=== PATIENT | female | born 1990 | race Caucasian/White ===

== ENCOUNTER 2018-01-16 12:30 | Emergency (ER) | payer BC ==
[2018-01-16] MEDS ORDERED: [UNRECOGNIZED DRUG - OTHER] (12:46)
--- NOTE | 2018-01-16 12:52 | ER Report ---
History and Physical Time Seen By MD: 12:50 Hx. of Stated Complaint: NUMBNESS DOWN BOTH ARM, CHEST PAIN/BACK PAIN SINCE WED. CRYING, STATES NOT GETTING BETTER. [facility] [place] HPI/ROS CHIEF COMPLAINT: Chest pain HISTORY OF PRESENT ILLNESS: This is a 27-year-old female who presents to the emergency department for chest pain, bilateral arm pain. Patient states that since Wednesday she's had an increase in chest pain, no shortness of breath along with bilateral arm pain, both arms hurt, states difficult to lift arms off the gurney. Patient is tearful. Anxious. Patient also states she was evaluated at a [place] urgent care today, where they did a strep test which was negative and an EKG. Patient then decided to come to [place] for further evaluation. Patient also states she had one fever last night. Patient also states that she has numbness and tingling to both upper extremities intermittent. No nausea vomiting no shortness of breath. No headaches. REVIEW OF SYSTEMS: Constitutional: As above. Eyes: No discharge. ENT: No sore throat. Cardiovascular: As above. Respiratory: No cough, no shortness of breath. Gastrointestinal: No abdominal pain, no vomiting. Genitourinary: No hematuria. Musculoskeletal: As above. Skin: No rashes. Neurological: No headache. Allergies: Coded Allergies: acetaminophen (Verified Allergy, Unknown, 01/16/18) hydrocodone (Verified Allergy, Unknown, 01/16/18) Home Meds Reported Medications [Bentromine] No Conflict Check 01/16/18 Past Medical/Surgical History Patient has no significant past medical or surgical history. Reviewed Nurses Notes: Yes Constitutional Vital Sign - Last 24 Hours 01/16/18 12:39 Temp 99.5 B/P (MAP) 133/78 Intake and Output 01/16/18 01/16/18 01/17/18 15:00 23:00 07:00 Intake Total 500 ml Balance 500 ml Physical Exam General Appearance: The patient is alert, has no immediate need for airway protection and no signs of toxicity, very anxious and tearful. Eyes: Pupils equal and round no pallor or injection. ENT, Mouth: Mucous membranes are moist. Respiratory: There are no retractions, lungs are clear to auscultation. Cardiovascular: Regular rate and rhythm, no murmurs, clicks or rubs. Gastrointestinal: Abdomen is soft and non tender, no masses, bowel sounds normal. Neurological: Alert and oriented 4. Moving all extremities. Following all commands. No focal neuro deficits. Painful to lift arms off the gurney. Skin: Warm and dry, no rashes. Musculoskeletal: Neck is supple non tender. Extremities are nontender, nonswollen and have full range of motion. CMS intact bilateral upper extremities. Bilateral upper extremity pulses palpable and equal. DIFFERENTIAL DIAGNOSIS: After history and physical exam differential diagnosis was considered for chest pain including but not limited to myocardial ischemia, pericarditis pulmonary embolus, anxiety, chest wall pain, pleural inflammation and pulmonary infectious causes. Medical Decision Making Data Points Result Diagram: 01/16/18 1312 01/16/18 1312 Laboratory Hematology Test 01/16/18 13:12 Red Blood Count 5.02 M/uL (4.17-5.56) Mean Corpuscular Volume 90.8 fL (80.0-96.0) Mean Corpuscular Hemoglobin 32.5 pg (26.0-33.0) Mean Corpuscular Hemoglobin Concent 35.8 g/dL (32.0-36.0) Red Cell Distribution Width 13.1 % (11.5-14.5) Mean Platelet Volume 6.8 fL (7.2-11.1) Neutrophils (%) (Auto) 81.9 % (39.4-72.5) Lymphocytes (%) (Auto) 9.2 % (17.6-49.6) Monocytes (%) (Auto) 7.0 % (4.1-12.4) Eosinophils (%) (Auto) 1.1 % (0.4-6.7) Basophils (%) (Auto) 0.8 % (0.3-1.4) Nucleated RBC Relative Count (auto) 0.0 /100WBC Neutrophils # (Auto) 7.2 K/uL (2.0-7.4) Lymphocytes # (Auto) 0.8 K/uL (1.3-3.6) Monocytes # (Auto) 0.6 K/uL (0.3-1.0) Eosinophils # (Auto) 0.1 K/uL (0.0-0.5) Basophils # (Auto) 0.1 K/uL (0.0-0.1) Nucleated RBC Absolute Count (auto) 0.00 K/uL D-Dimer Quantitative (PE/DVT) 0.40 ug/ml (0-0.50) Sodium Level 137 mmol/L (137-145) Potassium Level 4.0 mmol/L (3.5-5.0) Chloride Level 104 mmol/L (98-107) Carbon Dioxide Level 22 mmol/L (22-31) Blood Urea Nitrogen 9 mg/dl (7-18) Creatinine 0.80 mg/dl (0.52-1.04) Glomerular Filtration Rate Calc > 60.0 Random Glucose 97 mg/dl (75-110) Calcium Level 8.8 mg/dl (8.4-10.2) Total Bilirubin 0.4 mg/dl (0.2-1.3) Aspartate Amino Transf (AST/SGOT) 29 U/L (0-35) Alanine Aminotransferase (ALT/SGPT) 59 U/L (0-56) Alkaline Phosphatase 99 U/L (0-126) Troponin I < 0.012 ng/ml Total Protein 7.3 g/dl (6.3-8.2) Albumin 4.2 g/dl (3.5-5.0) Chemistry Test 01/16/18 13:12 White Blood Count 8.8 k/uL (4.5-11.0) Red Blood Count 5.02 M/uL (4.17-5.56) Hemoglobin 16.3 g/dL (12.0-16.0) Hematocrit 45.6 % (34.0-47.0) Mean Corpuscular Volume 90.8 fL (80.0-96.0) Mean Corpuscular Hemoglobin 32.5 pg (26.0-33.0) Mean Corpuscular Hemoglobin Concent 35.8 g/dL (32.0-36.0) Red Cell Distribution Width 13.1 % (11.5-14.5) Platelet Count 321 K/uL (150-450) Mean Platelet Volume 6.8 fL (7.2-11.1) Neutrophils (%) (Auto) 81.9 % (39.4-72.5) Lymphocytes (%) (Auto) 9.2 % (17.6-49.6) Monocytes (%) (Auto) 7.0 % (4.1-12.4) Eosinophils (%) (Auto) 1.1 % (0.4-6.7) Basophils (%) (Auto) 0.8 % (0.3-1.4) Nucleated RBC Relative Count (auto) 0.0 /100WBC Neutrophils # (Auto) 7.2 K/uL (2.0-7.4) Lymphocytes # (Auto) 0.8 K/uL (1.3-3.6) Monocytes # (Auto) 0.6 K/uL (0.3-1.0) Eosinophils # (Auto) 0.1 K/uL (0.0-0.5) Basophils # (Auto) 0.1 K/uL (0.0-0.1) Nucleated RBC Absolute Count (auto) 0.00 K/uL D-Dimer Quantitative (PE/DVT) 0.40 ug/ml (0-0.50) Glomerular Filtration Rate Calc > 60.0 Calcium Level 8.8 mg/dl (8.4-10.2) Total Bilirubin 0.4 mg/dl (0.2-1.3) Aspartate Amino Transf (AST/SGOT) 29 U/L (0-35) Alanine Aminotransferase (ALT/SGPT) 59 U/L (0-56) Alkaline Phosphatase 99 U/L (0-126) Troponin I < 0.012 ng/ml Total Protein 7.3 g/dl (6.3-8.2) Albumin 4.2 g/dl (3.5-5.0) Coagulation Test 01/16/18 13:12 D-Dimer Quantitative (PE/DVT) 0.40 ug/ml EKG/Imaging EKG Interpretation 12 lead EKG: Time of EKG 1311. Rhythm: Normal sinus rhythm, ventricular rate 100 bpm. [place]: normal QRS: normal ST segments: No ST depression or elevation identified. [place] [facility] [place] Patient: Isha Montenegro : 1990 Visit/Account:[id number] Date of Sevice: 01/16/2018 CHEST PA AND LAT INDICATION: Bilateral arm and leg pain COMPARISON: None available FINDINGS: Heart size within normal limits. There is no focal infiltrate or lobar consolidation. There is no pneumothorax or pleural effusion. IMPRESSION: 1. No acute cardiopulmonary process. Report Dictated By: Rajiv Smith at 01/16/2018 1:57 PM Report E-Signed By: Rajiv Smith at 01/16/2018 1:58 PM WSN:[facility] Location: [facility] [place] Patient: Isha Montenegro : 1990 Visit/Account:[id number] Date of Sevice: 01/16/2018 CERVICAL SPINE 2 OR 3 VIEW Indication: Pain., Comparison: None available. Findings: The prevertebral soft tissues are within normal limits. The vertebral body heights are well maintained. There is straightening of the normal cervical lordosis. No spondylosis or spondylolisthesis is identified. IMPRESSION: 1. No acute osseous or acute alignment abnormality of the cervical spine on this examination. Report Dictated By: Rajiv Smith at 01/16/2018 1:58 PM Report E-Signed By: Rajiv Smith at 01/16/2018 1:58 PM WSN:[facility] ED Course/Re-evaluation Clinical Indication for ER IV: Hydration, IV Access ED Course The patient was admitted to room. A history of physical were obtained. Differential diagnoses were considered. IV was started. A CBC, CMP, troponin and d-dimer were obtained. Lab studies unremarkable. Negative troponin negative d-dimer. Two-view chest x-ray was negative. Cervical spine negative. Patient was given a 1 L normal saline bolus. I reviewed the lab studies and the imaging studies with the patient. I did tell her that with the negative d-dimer there is no indication for pursuing her concerns of a clot. I did tell the patient I don't have a clear explanation is why she is having the pain in the upper extremities. However when I walked in the room the patient was moving her arms freely without any concerns of pain, she was tech stating, not crying or anxious appearing. After I reviewed the lab studies and the imaging studies with patient as I was exiting the room she began to cry. The patient's had no other questions at this time, no other concerns. I did tell her that she should follow-up with her primary care provider within the next 7 days for reevaluation and any other concerns. Patient had no questions or concerns at this time and discharged home. Decision to Disposition Date: Jan 16, 2018 Decision to Disposition Time: 14:18 Depart Departure Latest Vital Signs Vital Signs Date Time Temp Pulse Resp B/P (MAP) Pulse Ox O2 Delivery O2 Flow Rate FiO2 01/16/18 12:39 99.5 133/78 Impression: Primary Impression: Arm pain Additional Impression: Chest pain Condition: Improved Disposition: HOME OR SELF-CARE Patient Instructions: Arm Pain (ED), Chest Pain (ED) Additional Instructions: I do not have a clear cut reason for your chest pain and arm pains, however, nothing cardiac or any other concerning findings today. Drink plenty of fluids. Get plenty of rest. Take Ibuprofen or Tylenol as needed for pain. If the arm pain returns or if you have any other concerns follow up with your primary care provider in one week. For worsening symptoms return to the ED. Problem Qualifiers Primary Impression: Arm pain Laterality: bilateral Qualified Codes: M79.601 - Pain in right arm; M79.602 - Pain in left arm Additional Impression: Chest pain Chest pain type: unspecified Qualified Codes: R07.9 - Chest pain, unspecified WENDI LYN- Jan 16, 2018 12:52
[2018-01-16] MEDS ORDERED: NS(*) 0.9% 1000 ML BAG 1,000 ML IV ONE (12:58)
[2018-01-16] MEDS ORDERED: ASPIRIN 81 MG CHEW PO ONE (13:00)
[2018-01-16 13:19] LABS: PLATELET COUNT, AUTOMATED 321 K/uL (150-450)
--- NOTE | 2018-01-16 14:00 | RADIOLOGY IMAGING REPORT ---
FACILITY: [facility] - [place] PATIENT NAME: Isha Montenegro : 1990 MR: [id number] V: [id number] EXAM DATE: ORDERING PHYSICIAN: WENDI LYN TECHNOLOGIST: Location: [facility] - [place] Patient: Isha Montenegro : 1990 Visit/Account:[id number] Date of Sevice: 01/16/2018 CHEST PA AND LAT INDICATION: Bilateral arm and leg pain COMPARISON: None available FINDINGS: Heart size within normal limits. There is no focal infiltrate or lobar consolidation. There is no pneumothorax or pleural effusion. IMPRESSION: 1. No acute cardiopulmonary process. Report Dictated By: Rajiv Smith at 01/16/2018 1:57 PM Report E-Signed By: Rajiv Smith at 01/16/2018 1:58 PM WSN:[email or web address]
--- NOTE | 2018-01-16 14:02 | RADIOLOGY IMAGING REPORT ---
FACILITY: [facility] PATIENT NAME: Isha Montenegro : 1990 MR: [id number] V: [id number] EXAM DATE: ORDERING PHYSICIAN: WENDI LYN TECHNOLOGIST: Location: [facility] - [place] Patient: Isha Montenegro : 1990 Visit/Account:[id number] Date of Sevice: 01/16/2018 CERVICAL SPINE 2 OR 3 VIEW Indication: Pain., Comparison: None available. Findings: The prevertebral soft tissues are within normal limits. The vertebral body heights are well maintained. There is straightening of the normal cervical lordosis. No spondylosis or spondylolisthesis is ident ified. IMPRESSION: 1. No acute osseous or acute alignment abnormality of the cervical spine on this examination. Report Dictated By: Rajiv Smith at 01/16/2018 1:58 PM Report E-Signed By: Rajiv Smith at 01/16/2018 1:58 PM WSN:[email or web address]
--- NOTE | 2018-01-16 14:50 | EKG ---
FACILITY: [facility] - [place] PATIENT NAME: AMANDO CARR : [id number] MR: [id number] V: [id number] EXAM DATE: ORDERING PHYSICIAN: WENDI LYN TECHNOLOGIST: Test Reason : Blood Pressure : / mmHG Vent. Rate : 100 BPM Atrial Rate : 100 BPM P-R Int : 130 ms QRS Dur : 068 ms QT Int : 354 ms P-R-T Axes : 050 027 024 degrees QTc Int : 456 ms Normal sinus rhythm Normal ECG No previous ECGs available Confirmed by ALEN PEREZ ([id number]) on 01/16/2018 10:18:49 PM Referred By: DOMINGA Confirmed By:ALEN PEREZ
[2018-01-16 15:24] VITALS: BP 111/66
== END 2018-01-16 14:37 | disposition home or self-care (01) ==
LOC: ER 12:46
DX: M79.601 Pain in right arm (principal); M79.602 Pain in left arm; R07.89 Other chest pain
CPT/HCPCS: 71046; 72040; 84484; 85025; 85379; 93005; 96360; 99284; J7030; 82040; 82247; 82310; 82374; 82435; 82565; 82947; 84075; 84132; 84155; 84295; 84450; 84460; 84520